=== PATIENT | female | born 1975 | race Caucasian/White ===

== ENCOUNTER → 2017-10-09 | Outpatient (REF) | payer OTHER ==
[2017-10-09 14:27] LABS: INFLUENZA A AMPLIFICATION NEGATIVE (NEGATIVE); INFLUENZA B AMPLIFICATION POSITIVE (NEGATIVE); RSV AMPLIFICATION NEGATIVE (NEGATIVE)
== END ==
LOC: M LAB REF 13:16
DX: J09.X2 Influenza due to identified novel influenza A virus with other respiratory manifestations (principal)

== ENCOUNTER → 2017-11-02 | Outpatient (CLI) | payer OTHER ==
[2017-11-02 19:17] LABS: FREE T4 0.82 NG/DL (0.76-1.46)
== END ==
LOC: M SMT 14:16
DX: Z01.419 Encounter for gynecological examination (general) (routine) without abnormal findings (principal)

== ENCOUNTER → 2017-11-19 | Outpatient (CLI) | payer OTHER | LOC: M RAD 13:43 | DX: Z12.31 Encounter for screening mammogram for malignant neoplasm of breast (principal) ==

== ENCOUNTER 2018-07-22 08:44 | Day surgery (SDC) | payer OTHER ==
[2018-07-22] MEDS: NS 1,000 ML IV (09:30)
[2018-07-22] MEDS ORDERED: LIDOCAINE 2% INJ 100 MG/5 ML SDV (FOR ANES.) As Ordered (10:16)
[2018-07-22] MEDS ORDERED: PROPOFOL 200 MG/20 ML VIAL As Ordered ×2 (10:16→10:20)
== END 2018-07-22 11:16 | disposition home or self-care (01) ==
LOC: M OPP 08:44
DX: Q43.8 Other specified congenital malformations of intestine (principal); D12.2 Benign neoplasm of ascending colon; D12.0 Benign neoplasm of cecum; Z12.11 Encounter for screening for malignant neoplasm of colon; Z80.0 Family history of malignant neoplasm of digestive organs
CPT/HCPCS: 45385

== ENCOUNTER → 2018-11-30 | Outpatient (REF) | payer OTHER ==
[~2018-11-30] MED LIST: CALCTAB7 PO; CO Q100C10 PO; DHA200CA PO; ELDERBERRY PO; FISH1000 PO; IBUP1TAB7 PO; IRON325T3 PO; MULT1TAB10 PO; PRENCAP9 PO; PRENTAB74 PO; PROBCAP4 PO; VITA500046 PO; VITAD1000T OR; [UNRECOGNIZED DRUG - OTHER] PO
[2018-12-02 14:21] LABS: HPV HYBRID CAPTURE II Negative (Negative)
== END ==
LOC: M LAB REF 14:36
PROVIDERS: ATTEND Obstetrics & Gynecology
DX: Z12.4 Encounter for screening for malignant neoplasm of cervix (principal)
CPT/HCPCS: 87624; G0123

== ENCOUNTER → 2018-12-07 | Outpatient (CLI) | payer OTHER | LOC: M LAB 08:29 | PROVIDERS: ATTEND Obstetrics & Gynecology | DX: N97.9 Female infertility, unspecified (principal); N93.8 Other specified abnormal uterine and vaginal bleeding ==

== ENCOUNTER → 2020-02-13 | Outpatient (CLI) | payer OTHER ==
--- NOTE | 2020-02-13 14:17 | REPMRS ---
Patient History The patient states she has not had a clinical breast exam in over a year. The patient states she had a clinical breast exam in February 2020.Family history of colorectal cancer at age 53 in father, ovarian cancer at age 60 in paternal grandmother. 3D TOMOSYNTHESIS WAS PERFORMED. The Eliceo Faulkner lifetime risk for breast cancer is 15.8%. VOLPARA DENSITY C. Digital Woman Screen Mammo: February 13, 2020 - Exam #: [id number] Bilateral CC and MLO view(s) were taken. Technologist: Leona Chase, Technologist Prior study comparison: November 19, 2017, bilateral digital mammo screening bilat, performed at [facility]. FINDINGS: The breast tissue is heterogeneously dense. This may lower the sensitivity of mammography. There has been no change in the appearance of the mammogram from the prior studies. There is a moderate amount of residual fibroglandular tissue which is fairly symmetric. There is no interval development of dominant mass, areas of architectural distortion, or clustered microcalcification typical of malignancy. Assessment: BI-RADS/ACR category 1 mammogram. Negative Mammogram. Recommendation Routine screening mammogram in 1 year (for women over age 40). This mammogram was interpreted with the aid of an FDA-approved computer-aided dectection system. Electronically Signed By: Colin Barron MD 02/13/20 [id number]
== END ==
LOC: M WHC 11:34
PROVIDERS: ATTEND Obstetrics & Gynecology
DX: Z12.31 Encounter for screening mammogram for malignant neoplasm of breast (principal); Z80.0 Family history of malignant neoplasm of digestive organs; Z80.41 Family history of malignant neoplasm of ovary

== ENCOUNTER → 2020-02-20 | Outpatient (REF) | payer OTHER | LOC: M SFHCWAGY 10:46 | PROVIDERS: ATTEND Obstetrics & Gynecology | DX: Z01.419 Encounter for gynecological examination (general) (routine) without abnormal findings (principal); Z12.4 Encounter for screening for malignant neoplasm of cervix ==

== ENCOUNTER → 2020-06-25 | Outpatient (REF) | payer BC | LOC: M PLALAB 16:01 | PROVIDERS: ATTEND Obstetrics & Gynecology | DX: R87.612 Low grade squamous intraepithelial lesion on cytologic smear of cervix (LGSIL) (principal) ==

== ENCOUNTER → 2021-04-02 | Outpatient (REF) | payer BC | LOC: M SFHCWAGY 08:47 | PROVIDERS: ATTEND Obstetrics & Gynecology | DX: Z12.4 Encounter for screening for malignant neoplasm of cervix (principal); Z77.9 Other contact with and (suspected) exposures hazardous to health | CPT/HCPCS: 87624; G0123 ==

== ENCOUNTER → 2021-05-31 | Outpatient (CLI) | payer BC ==
--- NOTE | 2021-05-31 11:49 | REP ---
INDICATION: N91.1 SECONDARY AMENORRHEA. COMPARISON: 07/09/2010 the only prior TECHNIQUE: Transvesical and transvaginal FINDINGS: The uterus measures 7.5 by 3 x 4.2 cm. The parenchymal echo pattern is somewhat heterogenous but there are no discrete masses. The endometrial echo complex is heterogenous and poorly visualized with a maximal thickness of approximately 3 mm. The right ovary measures 2.4 x 1.5 x 2.9 cm and is within normal limits. Left ovary measures 1.3 x 1.3 x 1 cm and is within normal limits. Urinary bladder measures 7 x 7 x 9 cm. IMPRESSION: Poor visualization of the endometrial echo complex. Consider pre and post gadolinium enhanced pelvic MRI. <Electronically signed by Pool Antunez > 05/31/21 [id number]
== END ==
LOC: M WHC 10:34
PROVIDERS: ATTEND Obstetrics & Gynecology
DX: N91.1 Secondary amenorrhea (principal)

== ENCOUNTER → 2021-07-23 | Outpatient (CLI) | payer BC ==
--- NOTE | 2021-07-23 16:27 | REPMRS ---
Patient History The patient states she had a clinical breast exam in February 2021. Patient is postmenopausal and had first child at age 37. Family history of colorectal cancer at age 53 in father, ovarian cancer at age 60 in paternal grandmother. Patient states no breast complaints today. Patient has signed MRS History Sheet. Digital Woman Screen Mammo: July 23, 2021 - Exam #: [id number] Bilateral CC and MLO view(s) were taken. Technologist: Ale Borrero, Technologist Prior study comparison: February 13, 2020, bilateral digital woman screen mammo performed at [facility]. November 19, 2017, bilateral digital mammo screening bilat, performed at [facility]. FINDINGS: The breast tissue is heterogeneously dense. This may lower the sensitivity of mammography. Screening. Digital screening (2D) mammography was performed bilaterally in the CC and MLO projections. Additionally, breast tomosynthesis (3D mammography) was performed bilaterally in the CC and MLO projections. Todays exam was compared to the prior exam/exams. By history, the patient has no complaints of a palpable breast abnormality or other significant breast complaints. The Volpara volumetric breast density category is C, the breasts are heterogenously dense which may obscure small masses. The breasts are unchanged in size and shape. There are no diamond-soft tissue densities or spiculated masses. There is no internal architectural distortion. There are no suspicious diamond-calcific clusters. Skin thickening or nipple retraction is not present. IMPRESSION: BI-RADS Category 2- Benign Findings. There is no evidence of malignant alteration of the breasts. Followup examination recommended in one year. The lifetime Tyrer-Cuzick score is 14.5% This mammogram was read with the assistance of [facility],an FDA approved computer aided detection system for mammography. Due to the density of the breasts, MRI/whole breast screening ultrasound is warranted. Negative x-ray reports should not delay surgical consultation if a dominant or clinically suspicious mass is present. Not all breast cancers can be identified by mammography. Therefore, we recommend that you continue to perform regular breast self-examination and physical examination and then promptly contact your physician of any concerns or changes. Adenosis and dense breasts may obscure an underlying neoplasm. No significant changes when compared with prior studies. Assessment: BI-RADS/ACR category 2 mammogram. Benign Findings. Recommendation Routine screening mammogram of both breasts in 1 year. Electronically Signed By: Olaf Badillo MD 07/23/21 [id number]
== END ==
LOC: M WHC 13:07
PROVIDERS: ATTEND Obstetrics & Gynecology
DX: Z12.31 Encounter for screening mammogram for malignant neoplasm of breast (principal); Z80.0 Family history of malignant neoplasm of digestive organs

== ENCOUNTER → 2022-02-10 | Outpatient (CLI) | payer BC | LOC: M WUC 10:26 | PROVIDERS: ATTEND Physician Assistant | DX: S93.691A Other sprain of right foot, initial encounter (principal); S93.411A Sprain of calcaneofibular ligament of right ankle, initial encounter; X58.XXXA Exposure to other specified factors, initial encounter; Y92.9 Unspecified place or not applicable; Y93.9 Activity, unspecified; Y99.9 Unspecified external cause status ==

== ENCOUNTER 2024-01-05 08:06 | Day surgery (SDC) | payer BC ==
[~2024-01-05] VITALS: Ht 167.6 cm; Wt 75.3 kg
[~2024-01-05 08:06] MED LIST changes: +BUPR150T12 PO; +LEXA1TAB PO; +THERTAB52 PO
[2024-01-05] MEDS: NS 1,000 ML IV ONE (08:54)
[2024-01-05 09:43] VITALS: TEMP 97.2
[2024-01-05 09:54] VITALS: BP 113/54; O2SAT 100
== END 2024-01-05 10:00 | disposition home or self-care (01) ==
LOC: M OPP 08:06
PROVIDERS: ATTEND Internal Medicine Gastroenterology
DX: Z12.11 Encounter for screening for malignant neoplasm of colon (principal); Z12.12 Encounter for screening for malignant neoplasm of rectum; D12.5 Benign neoplasm of sigmoid colon; Q43.8 Other specified congenital malformations of intestine; Z80.0 Family history of malignant neoplasm of digestive organs; Z88.1 Allergy status to other antibiotic agents; Z86.2 Personal history of diseases of the blood and blood-forming organs and certain disorders involving the immune mechanism

== ENCOUNTER → 2024-10-26 | Outpatient (CLI) | payer OTHER | LOC: M WHC 15:21 | PROVIDERS: ATTEND Family Medicine | DX: Z12.31 Encounter for screening mammogram for malignant neoplasm of breast (principal) ==

== ENCOUNTER → 2024-11-17 | Outpatient (REF) | payer OTHER ==
[2024-11-19 13:01] LABS: HPV APTIMA Not Detected (Not Detected)
== END ==
LOC: M SFHCWAGY 15:26
PROVIDERS: ATTEND Obstetrics & Gynecology
DX: Z12.4 Encounter for screening for malignant neoplasm of cervix (principal)
CPT/HCPCS: 87624; G0123

== ENCOUNTER → 2024-11-17 | Outpatient (REF) | payer OTHER | LOC: M PLALAB 13:55 | PROVIDERS: ATTEND Obstetrics & Gynecology | DX: Z12.4 Encounter for screening for malignant neoplasm of cervix (principal); Z53.9 Procedure and treatment not carried out, unspecified reason ==